=== PATIENT | female | born 1945 | race African-American/Black ===

== ENCOUNTER 2016-09-09 15:23 | Emergency (ER) | payer BC, OTHER, MEDICARE ==
[~2016-09-09 15:23] MED LIST: COMP10B PO; FORTAMET500 MG PO; HYZAAR1 TAB PO; PCET PO; PT DENIES MEDS; ULTRAM50 PO
== END 2016-09-09 17:51 | disposition home or self-care (01) ==
LOC: ER 15:23
PROC: 2W3SXYZ Immobilization of Right Foot using Other Device (ICD-10-PCS; principal; 2016-09-09)
DX: S82.831A Other fracture of upper and lower end of right fibula, initial encounter for closed fracture (principal); I10 Essential (primary) hypertension; Z79.84 Long term (current) use of oral hypoglycemic drugs; Z79.899 Other long term (current) drug therapy; W17.2XXA Fall into hole, initial encounter
CPT/HCPCS: 73610-RT; 99283